=== PATIENT | male | born 1990 | race Asian ===

== ENCOUNTER 2017-01-24 17:43 | Emergency (ER) | payer OTHER ==
[~2017-01-24] VITALS: Ht 167.6 cm; Wt 77.1 kg
--- NOTE | ~2017-01-24 | EKG ---
[place] [address] [facility] [place] [address] ELECTROCARDIOGRAM REPORT Name: JEAN COKER Room #: DEP [facility]#: [id number] Admission: 01/24/17 Attend Phys: Discharge: 01/24/17 Date of : [birth year] Report #: [id number] THIS REPORT FOR: //name// [facility] ED Test Date: 2017-01-24 Test Time: 18:17:22 Pat Name: JEAN COKER Department: Room: Gender: M [employer]: : 1990 Requested By: Del Bae Order Number: [id number] MD: Adarsh Rose Measurements Intervals [place] Rate: 58 P: 103 TX: 196 QRS: 69 QRSD: 77 T: 56 QT: 394 QTc: 387 Interpretive Statements Sinus rhythm Borderline ST elevation, anterior leads Baseline wander in lead(s) V3 No previous ECG available for comparison Electronically Signed On 01-25-2017 9:00:20 CDT by Adarsh Rose [email or web address] <ELECTRONICALLY SIGNED> By: Adarsh Rose MD, [facility] 01/25/17 09 16 16 Adarsh Rose MD, FACC /EPI
[2017-01-24] MEDS ORDERED: LEXAPRO 10 MG T10 M1 PO (17:56)
[2017-01-24] MEDS ORDERED: IBUPROFEN 600600 M1 PO (17:57)
[2017-01-24 18:19] LABS: URINE BILIRUBIN NEGATIVE (Negative); URINE BLOOD 2+ (Negative); URINE COLOR YELLOW; URINE GLUCOSE-RANDOM* NEGATIVE (Negative); URINE KETONES NEGATIVE (Negative); URINE LEUKOCYTES-REFLEX NEGATIVE (Negative); URINE PROTEIN (DIPSTICK) 1+ (Negative); URINE SPECIFIC GRAVITY <= 1.005 (1.003-1.035); URINE UROBILINOGEN 0.2 E.U./dl (0.2-1.0)
[2017-01-24 18:19] LABS: ABSOLUTE NEUTROPHILS 5.7 thou/uL (1.4-8.2); BASOPHILS 0.5 % (0.0-2.0); EOSINOPHILS 0.6 % (0.0-3.0); HEMATOCRIT 47.8 % (42.0-52.0); HEMOGLOBIN 16.4 gm/dL (14.0-18.0); LYMPHOCYTES 18.1 % (24.0-44.0); MCH 28.2 pg (26.0-34.0); MCHC 34.4 g/dL (28.0-37.0); MCV 82.1 fL (80.0-100.0); MONOCYTES 5.4 % (1.0-8.0); PLATELET COUNT 213 thou/uL (150-400); POLYS 75.4 % (36.0-66.0); RBC 5.83 mil/uL (4.50-6.00); WBC 7.5 thou/uL (4.0-11.0)
[2017-01-24 18:21] LABS: MANUAL DIFF NO
[2017-01-24 18:24] LABS: CASTS None Seen /LPF (None Seen); CRYSTALS None Seen /LPF (None Seen); SQUAMOUS None Seen /LPF (0-3); URINE RBC 0-2 Rare /HPF (0-2); URINE WBC-REFLEX 0-5 Rare /HPF (0-5)
[2017-01-24 18:27] LABS: CALCIUM 9.1 mg/dL (8.5-10.1); CREATININE 1.9 mg/dL (0.7-1.3); POTASSIUM 3.6 mmol/L (3.5-5.1)
[2017-01-24 18:32] LABS: ALBUMIN 3.9 g/dL (3.4-5.0); TOTAL BILIRUBIN 0.8 mg/dL (<0.1-1.0); TOTAL PROTEIN 7.6 g/dL (6.4-8.2)
[2017-01-24] MEDS ORDERED: MEDROLDOSEPACK PO (19:19)
[2017-01-24] MEDS ORDERED: MOBIC15 MG PO (19:19)
[2017-01-24 19:20] VITALS: BP 125/73
== END 2017-01-24 19:28 | disposition home or self-care (01) ==
LOC: ER 17:43
PROVIDERS: Physician Assistant
DX: N28.9 Disorder of kidney and ureter, unspecified (principal); E86.0 Dehydration; F32.9 Major depressive disorder, single episode, unspecified; Z77.22 Contact with and (suspected) exposure to environmental tobacco smoke (acute) (chronic)

== ENCOUNTER 2017-07-23 09:20 | Emergency (ER) | payer OTHER ==
[~2017-07-23] VITALS: Ht 167.6 cm; Wt 81.7 kg
[~2017-07-23 09:20] MED LIST: IBUPROFEN 600600 M1 PO; LEXAPRO 10 MG T10 M1 PO; MEDROLDOSEPACK PO; MOBIC15 MG PO
[2017-07-23 09:21] VITALS: BP 121/90
[2017-07-23] MEDS ORDERED: IBUPROFEN 600600 M1 PO (09:40)
== END 2017-07-23 10:37 | disposition home or self-care (01) ==
LOC: ER 09:20
DX: M79.601 Pain in right arm (principal); F32.9 Major depressive disorder, single episode, unspecified; F10.99 Alcohol use, unspecified with unspecified alcohol-induced disorder; Z77.22 Contact with and (suspected) exposure to environmental tobacco smoke (acute) (chronic)